=== PATIENT | female | born 1995 | race Hispanic/Latino ===

== ENCOUNTER 2020-07-11 11:57 | Emergency (ER) | payer OTHER ==
[~2020-07-11] VITALS: Ht 167.6 cm; Wt 61.7 kg
[2020-07-11] MEDS ORDERED: PRENATABS RX T1 EACH (13:01)
[2020-07-11] MEDS ORDERED: MECLIZINE HCL 12.5 MG TAB ONE (13:30)
[2020-07-11] MEDS ORDERED: PROMETHAZINE HCL (IM) 25 MG/ML VIAL IM ONE ×2 (13:30)
[2020-07-11] MEDS ORDERED: MECLIZINE HCL 12.5 MG TAB PO NR (13:30)
[2020-07-11] MEDS ORDERED: ONDANSETRON ODT4 MG PO (14:32)
[2020-07-11] MEDS ORDERED: MECLIZINE HCL25 MG PO (14:32)
[2020-07-11] MEDS ORDERED: PROMETHAZINE HC50 M1 PR (14:32)
[2020-07-11 15:10] VITALS: BP 103/54
== END 2020-07-11 14:40 | disposition home or self-care (01) ==
LOC: FSED 11:59
DX: R42 Dizziness and giddiness (principal); R11.2 Nausea with vomiting, unspecified; R51.9 Headache, unspecified
CPT/HCPCS: 99283; J2550; J8597